=== PATIENT | female | born 2005 | race Caucasian/White ===

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

== ENCOUNTER → 2024-01-24 16:27 | Outpatient (BNVA) | payer OTHER, MEDICAID, SELFPAY | PROVIDERS: PCP Nurse Practitioner; Visit Provider Emergency Medicine | DX: J02.9 Acute pharyngitis, unspecified (principal) | CPT/HCPCS: 87071; 87880 ==

== ENCOUNTER → 2024-02-22 13:21 | Outpatient (BNVA) | payer OTHER, SELFPAY | PROVIDERS: PCP Nurse Practitioner; Visit Provider Nurse Practitioner | DX: I88.9 Nonspecific lymphadenitis, unspecified (principal) | CPT/HCPCS: 85025 ==

== ENCOUNTER → 2024-10-23 10:43 | Outpatient (BNVA) | payer OTHER, SELFPAY | PROVIDERS: PCP Nurse Practitioner; Visit Provider Nurse Practitioner Women's Health | DX: N93.9 Abnormal uterine and vaginal bleeding, unspecified (principal); R58 Hemorrhage, not elsewhere classified | CPT/HCPCS: 81000; 82728; 84439; 84443; 85025; 87086 ==

== ENCOUNTER 2024-10-31 10:01 | Outpatient (CLI) | payer OTHER, SELFPAY ==
[2024-10-31 10:48] LABS: Alanine Aminotransferase 12 U/L (0-33); Albumin Level 4.1 g/dL (3.5-5.2); Alkaline Phosphatase 94 U/L (35-105); Anion Gap 15.2 (5-19); Aspartate Amino Transferase 11 U/L (0-32); Blood Urea Nitrogen 9 mg/dL (6-20); Calcium 9.6 mg/dL (8.5-10.5); Carbon Dioxide 24 mmol/L (22-29); Chloride 104 mmol/L (98-107); Chol HDL Ratio 3.18 mg/dL (0.0-4.40); Cholesterol 175 mg/dL (0-200); Globulin 3.5 g/dL (1.3-4.6); Glomerular Filtration Rate 106.7 mL/min (90-130); Glucose 94 mg/dL (65-115); HDL Cholesterol 55 mg/dL (60-100); LDL Cholesterol Calculated 104 mg/dL (50-129); LDL HDL Ratio 1.89 RATIO (0.00-3.22); Osmolality Calculated 286 mOsm/kg (285-295); Potassium 4.2 mmol/L (3.5-5.1); Sodium 139 mmol/L (136-145); Total Bilirubin 0.3 mg/dL (0.15-1.2); Total Protein 7.6 g/dL (6.6-8.7); Triglycerides 78 mg/dL (0-150)
[2024-10-31 11:04] LABS: 25 Hydroxy Vitamin D 20 ng/mL (30-100)
== END 2024-10-31 10:02 | disposition home or self-care (01) ==
LOC: LAB 10:06
PROVIDERS: PCP Nurse Practitioner; Visit Provider Nurse Practitioner
DX: Z00.00 Encounter for general adult medical examination without abnormal findings (principal)
CPT/HCPCS: 36415; 80053; 80061; 82306

== ENCOUNTER 2025-01-09 11:16 | Outpatient (CLI) | payer OTHER, SELFPAY ==
--- NOTE | 2025-01-09 11:20 | XR_ITS ---
WS: [id number] Exam: XR scoliosis survey 4-5 [id number] Date/Time of Exam: 01/09/2025 11:31 AM Reason For Exam: M43.9 - Deforming dorsopathy, unspecified AP and lateral standing images of the thoracic and lumbar spine are submitted for scoliosis evaluation. There is levoscoliosis of the lower thoracic and lumbar spine measured from the lower endplate of L4 to the upper plate of T10. The curve measures 19 degrees. No other scoliosis is noted. There are no fractures or significant bony anomalies identified. The lumbar lordosis and thoracic kyphosis are unre markable. XR/XR scoliosis survey - [id number] IMPRESSION: 1. Levoscoliosis of the lower thoracic and lumbar spine measured from L4-T10. T he curve measures 19 degrees.
[2025-01-09 12:23] LABS: 25 Hydroxy Vitamin D 39 ng/mL (30-100)
== END 2025-01-09 11:17 | disposition home or self-care (01) ==
LOC: LAB 11:18
PROVIDERS: PCP Nurse Practitioner; Visit Provider Nurse Practitioner
DX: E55.9 Vitamin D deficiency, unspecified (principal); M41.85 Other forms of scoliosis, thoracolumbar region
CPT/HCPCS: 36415; 72083; 82306

== ENCOUNTER → 2025-01-16 12:00 | Outpatient (BNVA) | payer OTHER, SELFPAY | PROVIDERS: PCP Nurse Practitioner; Visit Provider Nurse Practitioner Women's Health | DX: R10.31 Right lower quadrant pain (principal) | CPT/HCPCS: 84315; 84702; 85025 ==

== ENCOUNTER → 2025-01-23 14:02 | Outpatient (BNVA) | payer OTHER, SELFPAY | PROVIDERS: PCP Nurse Practitioner; Visit Provider Nurse Practitioner | DX: J02.9 Acute pharyngitis, unspecified (principal) | CPT/HCPCS: 87070; 87880 ==

== ENCOUNTER → 2025-02-12 12:45 | Outpatient (BNVA) | payer OTHER, SELFPAY | PROVIDERS: PCP Nurse Practitioner; Visit Provider Nurse Practitioner Women's Health | DX: R10.2 Pelvic and perineal pain (principal) | CPT/HCPCS: 76830 ==